=== PATIENT | male | born 1970 | race Two or more races ===

== ENCOUNTER 2024-10-01 07:53 | Emergency (ER) | payer MEDICAID, OTHER ==
[~2024-10-01] VITALS: Ht 167.6 cm; Wt 82.4 kg
--- NOTE | 2024-10-01 08:40 | DVH ---
ULTRASOUND OF SCROTUM AND CONTENTS. INDICATION: left sided swelling COMPARISON: None TECHNIQUE: Multiple real-time grayscale sonographic and color and duplex Doppler images of the scrotu m and its contents were obtained. FINDINGS: The right testicle measures 5 x 2 x 3 cm. The left testicle measures 5 x 3 x 3 cm. Both testicles demonstrate homogeneous echotexture without evidence of focal lesions. The right epididymal head measures 1 cm. The left epididymal head measures 3.2 cm. Subsequent color and duplex Doppler interrogation of the testes demonstrated symmetric normal vascula r flow to both testicles. Hyperemia left epididymitis IMPRESSION: 1. left epididymitis.
--- NOTE | 2024-10-01 08:50 | ED.PDOC ---
General HPI Comments 54 year old male presents to the ED with a chief complaint of LT testicle swelling onset 1 week. Patient states he began experiencing LT testicle swelling and pain about 7 days ago, was seen at Urgent care 3 days ago and was given pain medication. PMHx HTN. Denies chest pain, shortness of breath, abdominal pain, nausea, vomiting, diarrhea, dysuria, hematuria. No other symptoms or modifying factors present at this time. Chief Complaint: Testicle Pain Time Seen by MD: 08:06 Primary Care Provider: NONE Reviewed notes: Medications, Allergies Allergies: Coded Allergies: NO KNOWN ALLERGIES (Unverified , 10/01/24) Home Meds Active Scripts Levofloxacin Hemihydrate (LEVOFLOXACIN) 500 Mg Tab, 500 MG PO DAILY for 10 Days, #10 MG Prov:REDD RIAVS MD 10/01/24 Ibuprofen Micronized (MOTRIN TABLET) 600 Mg Tb, 600 MG PO TID PRN for 5 Days, #15 TAB *Black box warning-NSAIDS can increase risk of CO & hypertension, GI irritation, ulceration, bleed, perferation. Do not use post cardiac surgery. Use short duration/lowest effective dose. Prov:REDD RIVAS MD 10/01/24 Information Source: Patient, Spouse Mode of Arrival: Ambulatory Severity: Moderate Timing: Weeks Duration: Since onset Prehospital treatment: Pain Meds Location: None Location male: L Scrotum Penile discharge: None Modifying factors: None associated signs and symptoms: Other (LT testicular swelling ) Past Medical History PAST MEDICAL HISTORY: HTN Surgical History: Unknown Family History Family History: Reviewed,noncontributory to illness, No family hx of Cancer, No family hx of DM, No family hx of Heart stefania, No family hx of HTN, No family hx ofKidney stefania, No family hx of Liver stefania, No family hx of Lung stefania, No family hx of Stroke Social History Smoker: Non-Smoker Alcohol: Denies ETOH Use Drugs: Denies Drug Use Lives In: Home Constitutional: denies: chills, diaphoresis, fatigue, fever, malaise, sweats, weakness, others EENTM: denies: blurred vision, double vision, ear bleeding, ear discharge, ear drainage, ear pain, ear ringing, eye pain, eye redness, hearing loss, mouth pain, mouth swelling, nasal discharge, nose bleeding, nose congestion, nose pain, photophobia, tearing, throat pain, throat swelling, voice changes, others Respiratory: denies: cough, hemoptysis, orthopnea, SOB at rest, shortness of breath, SOB with excertion, stridor, wheezing, others Cardiovascular: denies: chest pain, dizzy spells, diaphoresis, Dyspnea on exertion, edema, irregular heart beat, left arm pain, lightheadedness, palpitations, PND, syncope, others Gastrointestinal: denies: abdomen distended, abdominal pain, blood streaked bowels, constipated, diarrhea, dysphagia, difficulty swallowing, hematemesis, melena, nausea, poor appetite, poor fluid intake, rectal bleeding, rectal pain, vomiting, others Genitourinary: reports: testicle pain, testicle swelling; denies: burning, dysuria, flank pain, frequency, hematuria, incontinence, penile discharge, penile sore, pain, urgency, others Neurological: denies: dizziness, fainting, headache, left sided numbness, left sided weakness, numbness, paresthesia, pre-existing deficit, right sided numbness, right sided weakness, seizure, speech problems, tingling, tremors, weakness, others Musculoskeletal: denies: back pain, gout, joint pain, joint swelling, muscle pain, muscle stiffness, neck pain, others Integumetry: denies: bruises, change in color, change in hair/nails, dryness, laceration, lesions, lumps, rash, wounds, others Allergic/Immunocompromised: denies: Difficulty Healing, Frequent Infections, Hives, Itching, others Hematologic/Lymphatic: denies: anemia, blood clots, easy bleeding, easy bruising, swollen glands, others Endocrine: denies: excessive hunger, excessive sweating, excessive thirst, excessive urination, flushing, intolerance to cold, intolerance to heat, unexplained weight gain, unexplained weight loss, others Psychiatric: denies: anxiety, bipolar disorder, depression, hopeless, panic disorder, schizophrenia, sleepless, suicidal, others All Other Systems: Reviewed and Negative Physical Exam General Appearance: Moderate Distress HEENT: Normal ENT Inspection, Pharynx Normal, TMs Normal Neck: Full Range of Motion, Non-Tender, Normal, Normal Inspection Respiratory: Chest Non-Tender, Lungs Clear, No Accessory Muscle Use, No Respir atory Distress, Normal Breath Sounds Cardiovascular: No Edema, No JVD, No Murmur, No Gallop, Normal Peripheral Pulses, Regular Rate/Rhythm Breast Exam: Deferred Gastrointestinal: No Organomegaly, Non Tender, No Pulsatile Mass, Normal Bowel Sounds, Soft Genitalia: Deferred Pelvic: Deferred Rectal: Deferred Extremities: No calf tenderness, Normal capillary refill, Normal inspection, Normal range of motion, Non-tender, No pedal edema Musculoskeletal : Apperance: Normal Neurologic: Alert, 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 Was a procedure done?: No Differential Diagnosis Kidney stone (Female): Musculoskeletal pain, Urinary obstruction, Urolithiasis X-Ray, Labs, Meds, VS Vital Signs Date Time Temp Pulse Resp B/P (MAP) Pulse Ox O2 Delivery O2 Flow Rate FiO2 10/01/24 08:02 97.4 74 17 144/97 (113) 96 Patient alert. Complaining of testicular discomfort. Ultrasound revealed epididymitis. Vitals stable. Answering all questions. Ambulating. Was given prescription of Motrin Levaquin antibiotic. Explained to the patient. Was told to follow up with his primary care physician. Was told to come back if there is any problem. Time of 1ST Reevaluation: 08:36 Reevaluation 1ST: Improved Time of 2ND Reevaluation: 11:22 Reevaluation 2ND: Improved Patient Education/Counseling: Diagnosis, Treatment, Prognosis Family Education/Counseling: Diagnosis, Treatment, Prognosis Additional Information I reviewed the following notes from patient's past medical encounters: The following tests were ordered, and results were reviewed by me: TESTICULAR ULTRASOUND Additional Information was gathered from interviewing the following independent historians: I reviewed and agreed with the following test results read by other providers: T ESTICULAR ULTRASOUND I discussed treatment and results with medical personnel and: patient and Departure 1 Departure Time of Disposition: 11:23 Impression: Primary Impression: Epididymitis Disposition: 01 HOME / SELF CARE / HOMELESS Condition: Good e-Prescriptions Levofloxacin Hemihydrate (LEVOFLOXACIN) 500 Mg Tab 500 MG PO DAILY for 10 Days, #10 MG Prov: REDD RIVAS MD 10/01/24 Ibuprofen Micronized (MOTRIN TABLET) 600 Mg Tb 600 MG PO TID PRN for 5 Days, #15 TAB *Black box warning-NSAIDS can increase risk of CO & hypertension, GI irritation, ulceration, bleed, perferation. Do not use post cardiac surgery. Use short duration/lowest effective dose. Prov: REDD RIVAS MD 10/01/24 Discharged With: Self Critical Care Note Critical Care Time?: No Stability Stability form required: No Heart Score Heart Score: Heart Score Response (Comments) Value History N/A 0 EKG N/A 0 Age N/A 0 Risk Factors N/A 0 Troponin N/A 0 Total 0 I personally scribed for REDD RIVAS MD ([email or web address]) on 10/01/24 at 08:50. Electronically submitted by Rula Saavedra ([email or web address]). I personally scribed for REDD RIVAS MD ([email or web address]) on 10/01/24 at 09:12. Electronically submitted by Rula Saavedra ([email or web address]). REDD RIVAS MD Oct 01, 2024 08:50
[2024-10-01] MEDS ORDERED: IBU600T PO (11:24)
[2024-10-01] MEDS ORDERED: LEVO500T91 PO (11:24)
[2024-10-01 12:33] VITALS: BP 144/80; PULSE 78; RESP 16; O2SAT 98
== END 2024-10-01 12:36 | disposition home or self-care (01) ==
LOC: ER 07:53
DX: N45.1 Epididymitis (principal); I10 Essential (primary) hypertension; Z79.899 Other long term (current) drug therapy
CPT/HCPCS: 76870